=== PATIENT | female | born 1960 | race Caucasian/White ===

== ENCOUNTER → 2016-10-26 | Outpatient (CLI) | payer MEDICAID | LOC: BMCIMAGING 08:20 | PROVIDERS: ATTEND Family Medicine | DX: Z12.31 Encounter for screening mammogram for malignant neoplasm of breast (principal); Z85.3 Personal history of malignant neoplasm of breast; Z80.3 Family history of malignant neoplasm of breast | CPT/HCPCS: G0202 ==

== ENCOUNTER 2016-11-27 22:58 | Emergency (ER) | payer MEDICAID ==
[2016-11-27] MEDS ORDERED: NS 1,000 ML IV ONE (23:54)
[2016-11-28] MEDS ORDERED: FAMOTIDINE 20 MG/NACL 50 ML IV ONE (00:15)
[2016-11-28] MEDS ORDERED: methylPREDNISolone SOD SUCC 125 MG/2 ML VIAL IVP ONE (00:15)
--- NOTE | 2016-11-28 00:27 | EDPHY ---
H & P Stated Complaint: allergic reaction since yesterday Time Seen by Provider: 11/27/16 23:54 HPI/ROS: HPI The patient presents with 2 days of hives return diffuse throughout her body and started after she was outside shoveling rocks. They have been progressive and are now throughout her entire body and she feels very itchy. She does not have any difficulty breathing, wheezing, vomiting, lightheadedness. She denies any new exposures that she can recall. She does have multiple allergies and asthma.. REVIEW OF SYSTEMS Constitutional: No fever, no chills. Eyes: No discharge. ENT: No sore throat. Cardiovascular: No chest pain, no palpitations. Respiratory: No cough, no shortness of breath. Gastrointestinal: No abdominal pain, no vomiting. Genitourinary: No hematuria. Musculoskeletal: No back pain. Skin: Positive for rash Neurological: No headache. PMHx: Asthma, seasonal allergies PHYSICAL General Appearance: Alert, no distress Eyes: Pupils equal and round no pallor or injection ENT, Mouth: Mucous membranes moist, posterior pharynx is not edematous or erythematous Respiratory: There are no retractions, lungs are clear to auscultation Cardiovascular: Regular rate and rhythm Gastrointestinal: Abdomen is soft and non-tender, no masses, bowel sounds normal Neurological: A&O, moves all extremities Skin: Warm and dry, diffuse urticarial rash throughout the thorax, arms, legs, face Musculoskeletal: Neck is supple non tender Extremities: symmetrical, full range of motion Psychiatric: Patient is oriented X 3, there is no agitation Source: Patient Exam Limitations: No limitations - Personal History Current Tetanus/Diphtheria Vaccine: Yes - Medical/Surgical History Hx Asthma: No Hx Chronic Respiratory Disease: No Hx Diabetes: No Hx Cardiac Disease: No Hx Renal Disease: No Hx Cirrhosis: No Hx Alcoholism: No Hx HIV/AIDS: No Hx Splenectomy or Spleen Trauma: No Other PMH: ankle fusion, breast CA with lymphnodes, neck fusion, hysterectomy - Social History Smoking Status: Never smoked Constitutional: Initial Vital Signs Temperature (C) 36.8 C 11/27/16 23:00 Heart Rate 89 11/27/16 23:00 Respiratory Rate 17 11/27/16 23:00 Blood Pressure 123/76 H 11/27/16 23:00 O2 Sat (%) 95 11/27/16 23:00 O2 Delivery Mode Room Air Allergies/Adverse Reactions: coconut oil Allergy (Verified 06/28/14 03:05) NSAIDS (Non-Steroidal Anti-Inflamma Allergy (Verified 06/28/14 03:05) shellfish derived Allergy (Verified 06/28/14 03:05) Home Medications: Medication Instructions Recorded Albuterol [Proventil Inhaler HFA 1 - 2 puffs IH Q4H PRN 06/28/14 (*)] Beclomethasone Qvar 80 [Qvar 80 2 puffs IH BIDI 06/28/14 (*)] CYCLOBENZAPRINE HCL [Flexeril] 5 mg PO HS 06/28/14 Citalopram Hydrobromide [Celexa] 40 mg PO DAILY 06/28/14 Hydrochlorothiazide [HCTZ (*)] 25 mg PO DAILY 06/28/14 Levothyroxine [Synthroid 112 mcg 112 mcg PO DAILY06 06/28/14 (*)] Loratadine [Claritin 10 mg] 10 mg PO DAILY 06/28/14 clonazePAM [Klonopin (*)] 0.5 mg PO TID PRN 06/28/14 Amoxicillin/Clavulanate Pot 875 mg PO BID #14 tab 06/30/14 [Augmentin 875 MG TAB (RX)] oxyCODONE/APAP 5/325 [Percocet 1 - 2 tab PO Q3 PRN #30 tab 06/30/14 5/325 (*)] AZITHROMYCIN [Z-PACK] 250 mg PO DAILY #6 tab 06/24/15 Albuterol Sulfate [ALBUTEROL 0.63 mg IH Q4-6PRN PRN #7 06/24/15 SULFATE] predniSONE 60 mg PO DAILY #15 tab 06/24/15 Medical Decision Making Differential Diagnosis: This is a 56-year-old female who presents with extensive urticaria for the last 2 days. She does not have any signs of airway compromise, wheezing, vomiting or hypotension. She is quite uncomfortable even after receiving Benadryl 50 mg IV. The cause of her reaction is unclear. Plan for treatment with epi, Pepcid, Solu-Medrol. The patient had improvement in urticaria with the above treatment. She did feel quite jittery and was observed in the emergency room for several hours after receiving the epinephrine. She had no recurrence of her urticaria and was discharged home. She already has a prescription for an EpiPen. Differential diagnosis includes urticaria, allergic reaction, anaphylaxis. - Data Points Medications Given: Discontinued Medications Diphenhydramine HCl (Benadryl Injection) 50 mg IVP EDNOW ONE Stop: 11/27/16 23:46 Last Admin: 11/27/16 23:48 Dose: 50 mg Epinephrine HCl (Epinephrine) 0.5 mg IM EDNOW ONE Stop: 11/28/16 00:17 Last Admin: 11/28/16 00:27 Dose: 0.5 mg Sodium Chloride (Ns) 1,000 mls @ 0 mls/hr IV ONCE ONE PRN Reason: Wide Open Stop: 11/27/16 23:55 Last Admin: 11/27/16 23:55 Dose: 1,000 mls Famotidine/Sodium Chloride (Pepcid 20 Mg (Premix)) 50 mls @ 200 mls/hr IV EDNOW ONE Stop: 11/28/16 00:29 Last Admin: 11/28/16 00:23 Dose: 50 mls Methylprednisolone Sodium Succinate (Solu-Medrol) 125 mg IVP EDNOW ONE Stop: 11/28/16 00:16 Last Admin: 11/28/16 00:23 Dose: 125 mg Departure - Departure Disposition: Home, Routine, Self-Care Clinical Impression: Urticaria Condition: Good Instructions: Urticaria (ED) Additional Instructions: Please follow-up with your regular doctor tomorrow. You should return to the ER immediately if your worse in any way. Referrals: Ofelia Mclean MD [Primary Care Provider] - As per Instructions
[2016-11-28 03:48] VITALS: BP 115/68; PULSE 94; RESP 20; TEMP 98.1; O2SAT 92
== END 2016-11-28 03:48 | disposition home or self-care (01) ==
DX: L50.9 Urticaria, unspecified (principal); J45.909 Unspecified asthma, uncomplicated; Z85.3 Personal history of malignant neoplasm of breast
CPT/HCPCS: 96365; J0171; J1200

== ENCOUNTER → 2017-06-28 | Outpatient (CLI) | payer MEDICAID | LOC: BMCIMAGING 09:38 | PROVIDERS: ATTEND Family Medicine | DX: R92.8 Other abnormal and inconclusive findings on diagnostic imaging of breast (principal); N64.4 Mastodynia; Z85.3 Personal history of malignant neoplasm of breast; Z80.3 Family history of malignant neoplasm of breast; Z80.41 Family history of malignant neoplasm of ovary ==

== ENCOUNTER → 2017-07-07 | Outpatient (CLI) | payer MEDICAID ==
[~2017-07-07] MED LIST: GADOBUTROL 10 ML VIAL IVP ONE
== END ==
LOC: FIMAGING 06:59
PROVIDERS: ATTEND Internal Medicine Hematology & Oncology
DX: Z15.01 Genetic susceptibility to malignant neoplasm of breast (principal); Z85.3 Personal history of malignant neoplasm of breast; Z80.3 Family history of malignant neoplasm of breast
CPT/HCPCS: 0159T; 77059; A9585; C8908

== ENCOUNTER → 2018-04-03 | Outpatient (CLI) | payer MEDICAID | LOC: FIMAGING 07:07 | PROVIDERS: ATTEND Physician Assistant | DX: M75.111 Incomplete rotator cuff tear or rupture of right shoulder, not specified as traumatic (principal); M75.21 Bicipital tendinitis, right shoulder ==

== ENCOUNTER 2018-06-26 06:39 | Day surgery (SDC) | payer MEDICAID ==
[2018-06-26] MEDS ORDERED: ceFAZolin 2 GM/DEXTROSE 100 ML IV ONE (06:47)
[2018-06-26] MEDS ORDERED: LR 1,000 ML IV ONE (06:47)
[2018-06-26] MEDS ORDERED: BUPIVACAINE/EPI 0.5% 30 ML SDV ONE (06:56)
[2018-06-26] MEDS ORDERED: EPINEPHrine 1 MG/ML INJ ONE (06:56)
--- NOTE | 2018-06-26 07:48 | PDHPUP ---
History & Physical Update H&P update statement: This history and physical update is based on an assessment of the patient which was completed after admission or registration (within 24 hours), but prior to the surgery/procedure. H&P update: H&P reviewed & patient examined, no change in patient's condition since H&P completed
[2018-06-26] MEDS ORDERED: MIDAZOLAM 2 MG/2 ML VIAL IVP ONE (08:17)
[2018-06-26] MEDS ORDERED: MIDAZOLAM 2 MG/2 ML VIAL ONE (08:17)
[2018-06-26] MEDS ORDERED: fentaNYL 100 MCG/2 ML INJ ONE ×3 (08:27→12:32)
[2018-06-26] MEDS ORDERED: PROPOFOL/EMULSION 500 MG/50 ML BOTTLE IV ONE ×2 (08:27→10:09)
[2018-06-26] MEDS ORDERED: REMIFENTANIL HCL 1 MG VIAL ONE ×2 (08:29→10:09)
[2018-06-26] MEDS ORDERED: ROPIVACAINE HCL 150 MG/30 ML INJ ONE (08:34)
[2018-06-26] MEDS ORDERED: EPINEPHrine 1 MG/10 ML SYR IVP ONE (08:34)
[2018-06-26] MEDS ORDERED: ePHEDrine SULFATE 25 MG/5 ML SYR ONE (08:58)
[2018-06-26] MEDS ORDERED: DEXAMETHASONE 4 MG/ML VIAL ONE ×2 (09:05)
[2018-06-26] MEDS ORDERED: LIDO/EPI 1% **Not for Epidural 20 ML MDV ONE (09:09)
--- NOTE | 2018-06-26 10:59 | PDANEPAE ---
ANE History of Present Illness shoulder pain/RTC partial tear/bicpes tendonitis s/f scope, RTC repiar ANE Past Medical History - Cardiovascular History Hx Hypertension: Yes Hx Arrhythmias: No Hx Chest Pain: No Hx Coronary Artery / Peripheral Vascular Disease: No Hx CHF / Valvular Disease: No Hx Palpitations: No Cardiovascular History Comment: PROLONGED QT INTERVAL - Pulmonary History Hx COPD: No Hx Asthma/Reactive Airway Disease: Yes Hx Recent Upper Respiratory Infection: No Hx Oxygen in Use at Home: No Hx Sleep Apnea: Yes Sleep Apnea Screening Result - Last Documented: Positive Pulmonary History Comment: POS DESTINY - W/CPAP. RECENT PNA MAY SEEN BY PCP HAS F/U APPT 05/20 FOR CLEARANCE-BERNADETTE MOLINA AT [facility] [place]. CURRENTLY ASYMPTOMATIC - Neurologic History Hx Cerebrovascular Accident: No Hx Seizures: No Hx Dementia: No - Endocrine History Hx Diabetes: No Endocrine History Comment: NUCLEAR ABLATION FOR THYROID - Renal History Hx Renal Disorders: No - Liver History Hx Hepatic Disorders: No - Neurological & Psychiatric Hx Hx Neurological and Psychiatric Disorders: Yes Neurological / Psychiatric History Comment: ANXIETY - Cancer History Hx Cancer: Yes Cancer History Comment: BREAST CA R - Congenital Disorder History Hx Congenital Disorders: No - GI History Hx Gastrointestinal Disorders: Yes Gastrointestinal History Comment: GERD - Other Health History Other Health History: morbid obesity BMI > 50 - Chronic Pain History Chronic Pain: No - Surgical History Prior Surgeries: CHOLECYSTECTOMY. HYSTERECTOMY. CERVICAL FUSION. R BREAST LUMPECTOMY & LYMPHEDECTOMY. L ANKLE FUSION. CARDIAC CATHERIZATION ANE Review of Systems Review of Systems: - Exercise capacity METS (RN): 3 METS ANE Patient History - Allergies Allergies/Adverse Reactions: adhesive tape Allergy (Intermediate, Verified 06/26/18 07:01) Other-Enter Comments coconut oil Allergy (Verified 06/26/18 07:01) Hives NSAIDS (Non-Steroidal Anti-Inflamma Allergy (Verified 06/26/18 07:01) Hives shellfish derived Allergy (Verified 06/26/18 07:01) Anaphylaxis - Home Medications Home medications: home medication list seen and reviewed Home Medications: CYCLOBENZAPRINE HCL [Flexeril] 5 mg PO HS 06/28/14 [Last Taken 1 Day Ago ~] Citalopram Hydrobromide [Celexa] 40 mg PO DAILY 06/28/14 [Last Taken 1 Day Ago ~ 06/25/18] Hydrochlorothiazide [HCTZ (*)] 25 mg PO DAILY 06/28/14 [Last Taken 1 Day Ago ~] Levothyroxine [Synthroid 112 mcg (*)] 112 mcg PO DAILY06 06/28/14 [Last Taken 05:30] Loratadine [Claritin 10 mg] 10 mg PO DAILY 06/28/14 [Last Taken 1 Day Ago ~06/25] clonazePAM [Klonopin (*)] 0.5 mg PO TID PRN 06/28/14 [Last Taken 1 Day Ago ~] Diazepam 06/07/18 [Last Taken 2 Days Ago ~06/24/18] Flonase Nasal [place] 06/07/18 [Last Taken 1 Day Ago ~06/25/18] Herbals/Supplements -Info Only 06/07/18 [Last Taken 1 Week Ago ~06/19/18] Pantoprazole Sodium 06/07/18 [Last Taken 1 Day Ago ~06/25/18] Albuterol Sulfate [Proair Hfa] 1 puffs PRN 06/26/18 [Last Taken 06/26/18 05:30] Fluticasone Hfa 110 Mcg [Flovent 110 MCG Hfa MDI (*)] 2 puffs BID 06/26/18 [ Last Taken 1 Day Ago ~06/25/18] - NPO status NPO Status: no food or drink >8 hours NPO Since - Liquids (Date): 06/25/18 NPO Since - Liquids (Time): 20:00 NPO Since - Solids (Date): 06/25/18 NPO Since - Solids (Time): 20:00 - Anes Hx Anes Hx: no prior problems - Smoking Hx Smoking Status: Former smoker - Alcohol Use Alcohol Use: Occasionally - Family Anes Hx Family Anes Hx: none ANE Labs/Vital Signs - Vital Signs Blood Pressure: 143/116 Heart Rate: 74 Respiratory Rate: 18 O2 Sat (%): 94 Height: 158.12 cm Weight: 134.263 kg ANE Physical Exam - Airway Neck exam: FROM, decreased ROM Mallampati Score: Class 2 Mouth exam: normal dental/mouth exam - Pulmonary Pulmonary: other (distant breath sounds) - Cardiovascular Cardiovascular: regular rate and rhythym - ASA Status ASA Status: IV ANE Anesthesia Plan Anesthesia Plan: general endotracheal anesthesia Regional Anesthesia: interscalene BP NB
[2018-06-26] MEDS ORDERED: ONDANSETRON 4 MG/2 ML VIAL ONE ×2 (11:35→11:36)
[2018-06-26] MEDS ORDERED: NALOXONE HCL 0.4 MG/ML INJ IVP PRN (12:16)
[2018-06-26] MEDS ORDERED: HYDROCODONE/APAP 5/325 TAB PO PRN (12:16)
[2018-06-26] MEDS ORDERED: LABETALOL HCL 5 MG/ML 20 ML MDV IVP PRN (12:16)
[2018-06-26] MEDS ORDERED: METOCLOPRAMIDE 10 MG/2 ML VIAL IVP PRN (12:16)
[2018-06-26] MEDS ORDERED: ALBUTEROL 3 ML DEYVIAL IH PRN (12:16)
[2018-06-26] MEDS ORDERED: DEXAMETHASONE 4 MG/ML VIAL IVP PRN (12:16)
[2018-06-26] MEDS ORDERED: ACETAMINOPHEN 500 MG TAB PO PRN (12:16)
[2018-06-26] MEDS ORDERED: MEPERIDINE 25 MG/0.5 ML AMP IVP PRN (12:16)
[2018-06-26] MEDS ORDERED: PROMETHAZINE HCL 25 MG/ML INJ IVP PRN (12:16)
[2018-06-26] MEDS ORDERED: LR 500 ML IV PRN (12:16)
[2018-06-26] MEDS ORDERED: oxyCODONE IR 5 MG TAB PO PRN (12:16)
[2018-06-26] MEDS ORDERED: ONDANSETRON 4 MG/2 ML VIAL IVP PRN (12:16)
[2018-06-26] MEDS: fentaNYL 100 MCG/2 ML INJ IVP PRN ×5 (12:17→14:01)
[2018-06-26] MEDS ORDERED: oxyCODONE IR 5 MG TAB ONE (14:24)
[2018-06-26 14:56] VITALS: BP 134/85
[2018-06-26] MEDS ORDERED: HYDROCODONE/APAP 5/325 TAB ONE (15:14)
--- NOTE | 2018-06-27 02:58 | GOP ---
DATE OF OPERATION: 06/26/2018 SURGEON: Iker Ramirez MD ANESTHESIA: General and block. PREOPERATIVE DIAGNOSIS: POSTOPERATIVE DIAGNOSIS: PROCEDURE PERFORMED: 1. Right shoulder arthroscopy with limited debridement of labrum, synovium, partial rotator cuff tea r. 2. Right shoulder subacromial decompression and acromioplasty. 3. Right shoulder open biceps tenodesis . 4. Right shoulder distal clavicle excision, open (Phuong procedure). FINDINGS: INDICATIONS: The patient is a 58-year-old female who was seen by me multiple times with right should er chronic pain. She has tried and failed conservative treatment including multiple injections only as well as physical therapy. I had injected both in biceps and in the AC joint with nearly complete but very transient pain relief. MRI showed a possible small partial rotator cuff (supraspinatus) ten don tear as well as a lot of fluid around the biceps and pathology. We discussed the janeth tment options. As she failed conservative treatment, further arthroscopy was indicated. Discussed r isks and benefits. Risks include pain, bleeding, infection, damage to surrounding structures, incomp lete pain relief, stiffness, weakness, need for further operations tendon rupture. She un derstood these risks and wished to proceed. DESCRIPTION OF PROCEDURE: The patient was seen in preoperative holding area. She was given the oppo rtunity to ask questions. All questions were answered. Consent was signed. Surgical site was brad john. She was transferred to the operative suite. Great care was taken to transfer from the [facility] to the operating room table. Care was taken to pad all bony prominences. A block was performed by the anesthesia team. Time-out was called including surgical and anesthesia teams confirming the surgical site and procedure performed. 2 g of Ancef were given prior to incision. The right upper extremity was prepped and draped in usual sterile fashion. A time-out was called including surgical and anest hesia teams. Block was performed by the anesthesia team and then anesthesia was induced by the anest hesia team. She was then very carefully placed in beach chair position. In the beach chair position , care was taken to ensure that all bony prominences were padded, that her head was secured well padd ed, that her eyes were all padded. She was secured on the bed. She was then prepped and draped in t he usual sterile fashion for right shoulder arthroscopy. I then marked out her anatomy. Her procedu re was slightly difficult due to her body mass index. She had a very large arm. Marked up the anato my, then a standard posterior portal into the shoulder. I had entered shoulder joint then I made an anterior rotator portal in the standard fashion right away. We then performed diagnostic arthroscopy with findings as indicated. 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 There were large patches of grade 4 chondromalacia over the humeral head. There was at least a 4 x 3 cm sectio n of the superior humeral head that was missing cartilage. There was diffuse and proliferative synov itis of the joint. There was a fairly severe partial biceps tendon tear at the footprint and intrasu bstance tear. There was labral fraying anterior, superiorly, and posteriorly. There were no masses in the axillary pouch. However, there was diffuse synovitis. We visualized the rotator cuff. There was partial tearing at the interval. However, there was essentially no tear of the footprint. The entire footprint was intact. I then began the debridement portion of the procedure using a shaver to debride the synovitis and debride the labral fraying. I debrided down the biceps footprint. I also debrided the partial rotator cuff tear and fraying. After the biceps was tenotomized it was tagged with PDS suture. I then placed the scope in the subacromial position and made a lateral portal in th e subacromial position and performed bursectomy. There was a thick and I then visualized the rotator cuff. There was some bursal sided fraying. However, I was not able to pass t hrough the fraying. I debrided on this fraying. I visualized the footprint. There was no tear in t he footprint. I was able to visualize the biceps in the groove. I then visualized the AC joint and placed a spinal needle in the AC joint to je it. I then used a large bur to perform the acromiopla sty of the anterolateral corner. After acromioplasty was done arthroscopic incisions were removed. I then extended the lateral portal several centimeters for a lateral incision. I then made a split i n the anterolateral corner of the deltoid between the anterior and middle heads, and I visualized the humeral head and then opened the bicipital groove, visualized the biceps, pulled the biceps out of t he groove. I then bovied the groove. There was a lot of synovitis over the biceps that was removed with scissors. I then placed 1.7 FiberTak into the groove and then I attempted to check the proper t ension the biceps, and I secured the biceps into the anchor, performing the tenodesis. I then cut th e remainder of the biceps off. I then the dissected medially, visualized the AC joint then I made a longitudinal capsulotomy over the AC joint to visualize the distal clavicle then I used the saw 9 mm from the distal clavicle. This was excised. I examined this clavicle. There was large _ devoid of cartilage. Using a rasp, I smoothed out the end of the clavicle. I placed my fi nger into the void in then I abducted her arm across her body and there was no impingement . I then placed some bone wax over the end of the bone. I then closed the capsule with a #2 Ethibon d, and I had closed the split in the deltoid with a #2 Ethibond, and I closed the lateral incision in layers, the last layer being a 4-0 nylon. The incisions were closed with 4-0 nylon. A sterile dres sing was applied. We used paper tape as she is not able to tolerate any adhesive. She was taken to the PACU in stable condition and then was discharged home in stable condition. IMPLANTS USED: Arthrex 1.7 FiberTak anchor for the biceps. /[id number]/MODL
--- NOTE | 2018-06-27 09:55 | POSTANESTH ---
Post Anesthetic Evaluation Cardiovascular Status: Normal, Stable Respiratory Status: Normal, Stable Level of Consciousness/Mental Status: Can Participate in Eval Pain Control: Adequate, Prn Tx Ordered Nausea/Vomiting Control: Adequate, Prn Tx Ordered Complications Possibly Related to Anesthesia: None Noted
== END 2018-06-26 17:25 | disposition home or self-care (01) ==
LOC: FSGY 06:39
PROVIDERS: ATTEND Orthopaedic Surgery Hand Surgery
PROC: 0PB90ZZ Excision of Right Clavicle, Open Approach (ICD-10-PCS; principal; 2018-06-26 08:15)
PROC: 0LQ14ZZ Repair Right Shoulder Tendon, Percutaneous Endoscopic Approach (ICD-10-PCS; principal; 2018-06-26 08:15)
PROC: 0MB14ZZ Excision of Right Shoulder Bursa and Ligament, Percutaneous Endoscopic Approach (ICD-10-PCS; principal; 2018-06-26 08:15)
PROC: 0LM10ZZ Reattachment of Right Shoulder Tendon, Open Approach (ICD-10-PCS; principal; 2018-06-26 08:15)
DX: M75.111 Incomplete rotator cuff tear or rupture of right shoulder, not specified as traumatic (principal); M75.21 Bicipital tendinitis, right shoulder; M19.019 Primary osteoarthritis, unspecified shoulder; F41.8 Other specified anxiety disorders; J45.909 Unspecified asthma, uncomplicated; Z85.3 Personal history of malignant neoplasm of breast
CPT/HCPCS: C1713; J0171; J0690; J1100; J2250; J2270; J2405; J2704; J2795; J3010